=== PATIENT | male | born 1985 | race Two or more races ===

== ENCOUNTER 2023-10-25 09:16 | Emergency (ER) | payer SELFPAY ==
[~2023-10-25] VITALS: Ht 185.4 cm; Wt 104.3 kg
[2023-10-25 09:37] VITALS: O2SAT 99
[2023-10-25 09:50] LABS: BASOPHILS % 0.8 % (0.0-2.0); EOSINOPHILS % 1.5 % (0.0-5.0); HEMATOCRIT. 48.2 % (42.0-52.0); HEMOGLOBIN. 15.8 g/dL (14.0-18.0); LYMPHOCYTES % 22.8 % (20.0-50.0); MEAN CORPUSCULAR HEMOGLOBIN 27.3 pg (28.0-32.0); MEAN CORPUSCULAR HGB CONC 32.8 g/dL (31.0-37.0); MEAN CORPUSCULAR VOLUME 83.4 fL (80.0-94.0); MEAN PLATELET VOLUME 8.7 fl (7.4-10.4); MONOCYTES % 8.4 % (2.0-8.0); NEUTROPHILS % 66.5 % (40.0-76.0); PLATELET 198 x1000/uL (130-400); RED BLOOD CELL COUNT 5.78 mill/uL (4.7-6.1); RED CELL DISTRIBUTION WIDTH 13.9 % (11.6-14.6)
[2023-10-25 10:01] LABS: PROTHROMBIN TIME 11.4 sec (9.6-11.0)
[2023-10-25 11:11] LABS: ALANINE AMINOTRANSFERASE 22 IU/L (10-49); ALBUMIN 4.7 g/dL (3.2-4.8); ASPARTATE AMINOTRANSFERASE 22 IU/L (<34); BILIRUBIN TOTAL 0.8 mg/dL (0.1-1.0); CALCIUM 8.8 mg/dL (8.7-10.4); CARBON DIOXIDE 25 mEq/L (21-32); CHLORIDE 106 mEq/L (98-107); GLUCOSE 109 mg/dL (70-105); PROTEIN TOTAL 7.6 g/dL (6.0-8.3); SODIUM 138 mEq/L (136-145); TROPONIN I HIGH SENSITIVITY 11 ng/L (3.0-53); UREA NITROGEN BLOOD 9 mg/dL (9-23)
[2023-10-25] MEDS ORDERED: ACETAMINOPHEN 325MG TABLET PO PRN ×2 (12:15)
[2023-10-25] MEDS ORDERED: CLONIDINE 0.1MG TABLET PO PRN (12:15)
[2023-10-25] MEDS ORDERED: DOCUSATE SODIUM 100MG CAPSULE PO PRN (12:15)
[2023-10-25] MEDS ORDERED: GUAIFENESIN 200MG/10ML SUGAR FREE UDC PO PRN (12:15)
[2023-10-25] MEDS ORDERED: IPRATROPIUM/ALBUTEROL 0.5-3(2.5)MG/3ML NEB HHN PRN (12:15)
[2023-10-25] MEDS ORDERED: MAGNESIUM/ALUMINUM HYDROXIDE/SIMETHICONE 30ML UDC PO PRN (12:15)
[2023-10-25] MEDS ORDERED: ONDANSETRON HCL 4MG/2ML INJ IV PRN (12:15)
[2023-10-25 12:19] VITALS: TEMP 98.2
[2023-10-25] MEDS: AMLODIPINE 5MG TABLET PO SCH (12:25)
[2023-10-25] MEDS: ASPIRIN 325MG EC TABLET PO NR (12:25)
[2023-10-25] MEDS: ENOXAPARIN 40MG/0.4ML SYR SUBCUT SCH (13:00)
[2023-10-25] MEDS: NITROGLYCERIN OINT 1GM/INCH UDPKT TD SCH (13:31)
[2023-10-25 13:34] LABS: CREATINE KINASE 149 IU/L (46-171); CREATINE KINASE MB FRACTION 1.9 ng/mL (0.5-3.6); TROPONIN I HIGH SENSITIVITY 10 ng/L (3.0-53)
[2023-10-25 13:40] LABS: ETHANOL BLOOD < 10 mg/dL (<10)
[2023-10-25 14:02] VITALS: BP 136/96; PULSE 76; RESP 14
[2023-10-25 16:48] LABS: CLARITY URINE CLEAR (CLEAR); COLOR URINE YELLOW (YELLOW); GLUCOSE URINE NEGATIVE (NEGATIVE); KETONES URINE NEGATIVE (NEGATIVE); LEUKOCYTE ESTERASE URINE NEGATIVE (NEGATIVE); NITRITE URINE NEGATIVE (NEGATIVE); OCCULT BLOOD URINE TRACE (NEGATIVE); PH URINE 5.5 (4.5-8.0); PROTEIN URINE NEGATIVE (NEGATIVE); SPECIFIC GRAVITY URINE 1.007 (1.005-1.030); UROBILINOGEN URINE 0.2 E.U./dL (0.2-1.0)
[2023-10-25] MEDS ORDERED: AMLODIPINE 5MG TABLET PO SCH (17:00)
[2023-10-25 17:01] LABS: BACTERIA URINE TRACE; RBC URINE 0-2 /hpf (0-2); SQUAMOUS EPITHELIAL CELL URINE RARE /lpf (RARE/1+); WBC URINE NONE SEEN /hpf (0-2)
[2023-10-25 17:03] LABS: *AMPHETAMINES SCREEN URINE NEGATIVE (NEGATIVE); *BARBITURATES SCREEN URINE NEGATIVE (NEGATIVE); *BENZODIAZEPINES SCREEN URINE NEGATIVE (NEGATIVE); *COCAINE SCREEN URINE NEGATIVE (NEGATIVE); CANNABINOID URINE SCREEN NEGATIVE (NEGATIVE); ECSTASY MDMA SCREEN URINE NEGATIVE (NEGATIVE); METHADONE URINE SCREEN Neg (NEGATIVE); OPIATES URINE SCREEN NEGATIVE (NEGATIVE); PHENCYCLIDINE URINE SCREEN NEGATIVE (NEGATIVE)
[2023-10-25] MEDS ORDERED: FAMOTIDINE 20MG TABLET PO SCH (21:00)
[2023-10-26] MEDS ORDERED: ASPIRIN 81MG EC TABLET PO SCH (09:00)
[2023-10-26] MEDS ORDERED: THIAMINE HCL 100MG TABLET PO SCH (09:00)
[2023-10-28 10:10] LABS: CHLAMYDIA TRACHOMATIS NAA Negative (Negative); NEISSERIA GONORRHOEAE NAA Negative (Negative)
== END 2023-10-25 15:01 | disposition home or self-care (01) ==
LOC: ER 09:16 → EDBEDREQ 11:43 → EDBEDREQTM 11:43 → CANBEDREQ 14:45 → ER 15:01
DX: R55 Syncope and collapse (principal); F12.10 Cannabis abuse, uncomplicated; E11.9 Type 2 diabetes mellitus without complications; I10 Essential (primary) hypertension; Z88.2 Allergy status to sulfonamides
CPT/HCPCS: 87491; 87591; 80053; 80305; 81003; 80320; 82550; 82553; 83036; 83880; 85025; 85610; 86592; 84484; 36415; 71045; 70450; 93970; 93005; 99285; Z7610 ×3; J1650; G0480